=== PATIENT | female | born 1970 | race Asian ===

== ENCOUNTER 2017-06-01 05:56 | Day surgery (SDC) | payer OTHER ==
[2017-06-01] MEDS ORDERED: ceFAZolin 2 GM/DEXTROSE 100 ML IV ONE (06:07)
[2017-06-01 06:17] VITALS: RESP 14
[2017-06-01] MEDS ORDERED: LIDOCAINE 1% 2 ML INJ ID PRN (06:21)
[2017-06-01] MEDS ORDERED: NS 1,000 ML IV ONE (06:21)
[2017-06-01 06:46] LABS: % IMMATURE GRANULYOCYTES 0.2 % (0.0-1.1); ABSOLUTE IMMATURE GRANULOCYTES 0.01 10^3/uL (0.00-0.10); ADD DIFF? NO; ADD MORPH? NO; ADD SCAN? NO; ATYPICAL LYMPHOCYTE FLAG 0 (0-99); FRAGMENT RBC FLAG 0 (0-99); HEMATOCRIT 43.6 % (38.0-47.0); HEMOGLOBIN 14.1 g/dL (12.6-16.3); LEFT SHIFT FLG 30 (0-99); LIPEMIA HEMOLYSIS FLAG 80 (0-99); MEAN CELL HEMOGLOBIN 29.4 pg (27.9-34.1); MEAN CELL HEMOGLOBIN CONCENTR. 32.3 g/dL (32.4-36.7); MEAN PLATELET VOLUME 8.8 fL (8.7-11.7); PLATELET CLUMPS FLAG 0 (0-99); PLATELET COUNT 219 10^3/uL (150-400); RED BLOOD CELL COUNT 4.79 10^6/uL (4.18-5.33)
[2017-06-01] MEDS ORDERED: PAPAVERINE HCL 60 MG/2 ML SDV ONE (06:54)
[2017-06-01] MEDS ORDERED: BUPIVACAINE 0.5% 30 ML SDV ONE (06:55)
[2017-06-01] MEDS ORDERED: THROMBIN (BOVINE) 20,000 UNIT SPRAY TP ONE (06:55)
[2017-06-01] MEDS ORDERED: PROTAMINE SULFATE 50 MG/5 ML VIAL IVP ONE (06:55)
[2017-06-01] MEDS ORDERED: THROMBIN (BOVINE) 5,000 UNIT VIAL TP ONE (06:56)
[2017-06-01 07:02] LABS: ANION GAP 10 mEq/L (8-16); CALCIUM 9.3 mg/dL (8.5-10.4); CARBON DIOXIDE 21 mEq/l (22-31); CHLORIDE 115 mEq/L (97-110); CREATININE 0.7 mg/dL (0.6-1.0); GLOMERULAR FILTRATION RATE > 60; GLUCOSE 73 mg/dL (70-100); POTASSIUM 4.2 mEq/L (3.5-5.2); SODIUM 146 mEq/L (134-144)
--- NOTE | 2017-06-01 07:02 | PDANEPAE ---
ANE Past Medical History - Cardiovascular History Hx Hypertension: Yes Hx Arrhythmias: No Hx Chest Pain: No Hx Coronary Artery / Peripheral Vascular Disease: No Hx CHF / Valvular Disease: No Hx Palpitations: No - Pulmonary History Hx COPD: No Hx Asthma/Reactive Airway Disease: No Hx Recent Upper Respiratory Infection: No Hx Oxygen in Use at Home: No Hx Sleep Apnea: No Sleep Apnea Screening Result - Last Documented: Negative - Neurologic History Hx Cerebrovascular Accident: No Hx Seizures: No Hx Dementia: No Neurologic History Comment: IgA neuropathy - Endocrine History Hx Diabetes: No Endocrine History Comment: hyperparathyroidism - Renal History Hx Renal Disorders: Yes Renal History Comment: hx of cadaveric renal transplant. esrd - Liver History Hx Hepatic Disorders: No - Neurological & Psychiatric Hx Hx Neurological and Psychiatric Disorders: No - Cancer History Hx Cancer: No - Congenital Disorder History Hx Congenital Disorders: No - GI History GERD: no Hx Gastrointestinal Disorders: No - Other Health History Other Health History: wears reading glasses. upper and lower partial. iron def anemia - Chronic Pain History Chronic Pain: No - Surgical History Prior Surgeries: appy. breast bx. cadaveric kidney transplant 09/2009 ANE Review of Systems - Exercise capacity METS (RN): 4 METS ANE Patient History - Allergies Allergies/Adverse Reactions: No Known Drug Allergies Allergy (Verified 05/29/17 19:22) - Home Medications Home Medications: Amlodipine Besylate 05/30/17 [Last Taken 05/31/17] K Phos 05/30/17 [Last Taken 05/31/17] MAGNESIUM 05/30/17 [Last Taken 05/31/17] Myfortic 05/30/17 [Last Taken 05/31/17] Prograf 05/30/17 [Last Taken 05/31/17] predniSONE 05/30/17 [Last Taken 05/31/17] - NPO status NPO Since - Liquids (Date): 05/31/17 NPO Since - Liquids (Time): 21:00 NPO Since - Solids (Date): 05/31/17 NPO Since - Solids (Time): 19:00 - Smoking Hx Smoking Status: Never smoked - Family Anes Hx Family Hx Anesthesia Complications: none ANE Labs/Vital Signs - Labs Result Diagrams: 06/01/17 06:32 06/01/17 06:32 - Vital Signs Blood Pressure: 136/86 Heart Rate: 64 Respiratory Rate: 14 O2 Sat (%): 97 Height: 147.32 cm Weight: 52.163 kg ANE Physical Exam - Airway Neck exam: FROM Mallampati Score: Class 1 Mouth exam: dentures - Pulmonary Pulmonary: no respiratory distress, no rales or rhonchi, clear to auscultation - Cardiovascular Cardiovascular: regular rate and rhythym, no murmur, rub, or gallop - ASA Status ASA Status: III ANE Anesthesia Plan Anesthesia Plan: GA w LMA
[2017-06-01] MEDS ORDERED: fentaNYL 100 MCG/2 ML INJ ONE ×2 (07:12→08:37)
[2017-06-01] MEDS ORDERED: PROPOFOL 200 MG/20 ML VIAL ONE (07:12)
[2017-06-01] MEDS ORDERED: LIDOCAINE 2% JELLY 5 ML TUBE ONE (07:13)
[2017-06-01] MEDS ORDERED: LIDOCAINE 2% 5 ML SDV ONE (07:13)
[2017-06-01] MEDS ORDERED: ONDANSETRON 4 MG/2 ML VIAL ONE (07:13)
[2017-06-01] MEDS ORDERED: DEXAMETHASONE 4 MG/ML VIAL ONE (07:17)
--- NOTE | 2017-06-01 07:27 | PDGENHP ---
History & Physical Chief Complaint: Painful AV fistula
--- NOTE | 2017-06-01 07:29 | PDGENHP ---
History and Physical History and Physical: Chief complaint AV fistula ligation consult History of present illness: Haresh Doe is a 47-year-old female who was referred here for surgical consult for AV fistula ligation. She is status post renal transplant in 2008 for end-stage renal disease secondary to IgA nephropathy. She is no longer using her fistula and she would like it removed Past medical history: Anemia, end-stage renal disease, hypertension, hyperparathyroidism, IgA nephropathy, iron deficiency, osteopenia Past surgical history: Appendectomy, breast biopsy, [facility] renal transplant , AV fistula Medications amlodipine, K-Phos, magnesium, Myfortic, prednisone, Prograf Allergies no known drug allergies review of systems negative aside from button HPI Physical exam: General: Well-groomed alert oriented x3 and in no acute distress HEENT: Normocephalic atraumatic pupils pupils equal and round Pulmonary clear to auscultation bilaterally Cardiac regular rate and rhythm Abdomen soft nontender Extremities warm well perfused with fistula thrill assessment: AV fistula nonuse Plan: AV fistula ligation and removal risks and options have been discussed and she requests to proceed. Please see prior HPI on 04/25/2017.
[2017-06-01] MEDS ORDERED: HYDROCODONE/APAP 5/325 TAB PO PRN (07:50)
[2017-06-01] MEDS ORDERED: LABETALOL HCL 50 MG/10 ML SYR IVP PRN (07:50)
[2017-06-01] MEDS ORDERED: LR 500 ML IV PRN (07:50)
[2017-06-01] MEDS ORDERED: ENALAPRILAT DIHYDRATE 1.25 MG/ML VIAL IVP PRN (07:50)
[2017-06-01] MEDS ORDERED: PROMETHAZINE HCL 25 MG/ML INJ IVP PRN (07:50)
[2017-06-01] MEDS ORDERED: fentaNYL 100 MCG/2 ML INJ IVP PRN (07:50)
[2017-06-01] MEDS ORDERED: MEPERIDINE 25 MG/ML SYR IVP PRN (07:50)
[2017-06-01] MEDS ORDERED: OXYCODONE/APAP 5/325 TAB PO PRN (07:50)
[2017-06-01] MEDS ORDERED: NALOXONE HCL 0.4 MG/ML INJ IVP PRN (07:50)
[2017-06-01] MEDS ORDERED: ONDANSETRON 4 MG/2 ML VIAL IVP PRN (07:50)
[2017-06-01 09:16] VITALS: O2SAT 97
[2017-06-01] MEDS ORDERED: HYDROCODONE/APAP 5/325 TAB ONE (09:41)
[2017-06-01 10:20] VITALS: BP 149/91; PULSE 64; TEMP 98.2
--- NOTE | 2017-06-01 10:40 | POSTANESTH ---
Post Anesthetic Evaluation Cardiovascular Status: Normal, Stable, Similar to Pre-Op Cond Respiratory Status: Normal, Stable, Similar to Pre-op Cond. Level of Consciousness/Mental Status: Can Participate in Eval, Mildly Sleepy, Arousable Pain Control: Adequate, Prn Tx Ordered Nausea/Vomiting Control: Adequate, Prn Tx Ordered Complications Possibly Related to Anesthesia: None Noted
--- NOTE | 2017-06-01 11:11 | POSTOPPROG ---
Post Op Note Date of Operation: 06/01/17 Surgeon: Masoud Huston Marble Machine Tender: Wanda Henley Anesthesiologist: Valentino Florez Anesthesia: GET(General Endotracheal) Pre-op Diagnosis: presence of AVF, s/p renal transplant, no longer on dialysis Post-op Diagnosis: same Procedure: ligation and removal of LUE AVF Findings: large AVF Inf/Abcess present in the surg proc area at time of surgery?: No EBL: 50-100 Complications: none Drains: Kali Bullard
--- NOTE | 2017-06-06 23:25 | GOP ---
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 PROCEDURE PERFORMED: FINDINGS: Patient was found to have multiple enlarged bullous changes in her upper arm AV fistula. DESCRIPTION OF PROCEDURE: Patient was taken to the operating room, where she received satisfactory general endotracheal anesthesia. She was placed in supine position, prepped and draped in the usual sterile fashion. A transverse incision was made at the origin of the fistula. Dissection extended down through the subcutaneous tissue and the fistula was encircled with a 2-0 silk tie. The dissec tion extended back almost to the brachial artery and the vessel was doubly ligated with 2-0 silk tie s. A longitudinal incision was then made along the course of the fistula tract and the aneurysmal s ections were resected. Some collateral branches were hemoclipped and divided. The entire fistula a nd aneurysm was removed up to the upper arm where it was again ligated with 2-0 silk ties. The spec imen was removed. Hemostasis was obtained. Some topical thrombin was placed in the wound. A 15 ro und silicone MICHAEL drain was brought out through a separate stab incision secured to the skin with a si lk suture. The wound was then closed in layers using 3-0 Vicryl for the subcu and skin sherrill for the skin. She tolerated the procedure well. There were no complications. She was taken to the rec overy room in good condition. PROCEDURE: Resection of left arm AV fistula aneurysms and ligation of the fistula. /[id number]/MODL
== END 2017-06-01 10:20 | disposition home or self-care (01) ==
LOC: FSGY 05:56
PROVIDERS: ATTEND Surgery
PROC: 03LY0ZZ Occlusion of Upper Artery, Open Approach (ICD-10-PCS; principal; 2017-06-01 07:15)
DX: T82.848A Pain due to vascular prosthetic devices, implants and grafts, initial encounter (principal); T82.898A Other specified complication of vascular prosthetic devices, implants and grafts, initial encounter; Z94.0 Kidney transplant status
CPT/HCPCS: J0690; J1100; J1644; J2405; J2440; J2704; J2720; J3010

== ENCOUNTER → 2019-02-06 | Outpatient (CLI) | payer BC, OTHER ==
[~2019-02-06] MED LIST: IOPAMIDOL (ISOVUE 370) 100 ML BTL IV ONE
== END ==
LOC: FIMAGING 12:46
PROVIDERS: ATTEND Surgery
DX: T82.868A Thrombosis due to vascular prosthetic devices, implants and grafts, initial encounter (principal)
CPT/HCPCS: 82565-PO; Q9967